=== PATIENT | male | born 1995 | race Caucasian/White ===

== ENCOUNTER 2023-08-24 07:12 | Emergency (ER) | payer OTHER, SELFPAY ==
--- NOTE | ~2023-08-24 | CT_ITS ---
EXAMINATION: CT ABDOMEN AND PELVIS WITH CONTRAST CLINICAL INFORMATION: Severe diffuse abdominal pain COMPARISON: None available. TECHNIQUE: Multidetector volumetric images were obtained from the superior aspect of the liver through the pubic symphysis following administration 85 mL of Omnipaque 350 intravenous contrast. Sagittal and coronal reformatted images were obtained on the technologist's workstation. Oral contrast: Yes This CT examination was performed using dose optimization techniques as appropriate, variously including the following: *Automated exposure control *Adjustment of mA and/or kV according to patient size (this includes techniques or standardized protocols for targeted exams where dose is matched to indication/reason for exam; i.e. extremities or head) *Use of iterative reconstruction technique DLP: 347 mGy-cm FINDINGS: LUNG BASES: The visualized lung bases are unremarkable. LIVER, GALLBLADDER, AND BILIARY TREE: The liver is normal in size, shape, and attenuation. No focal hepatic lesion or biliary ductal dilatation is present. The gallbladder is unremarkable with no evidence of radiopaque gallstones, gallbladder wall thickening, or obvious pericholecystic inflammatory changes. PANCREAS: Unremarkable. SPLEEN: Unremarkable. ADRENAL GLANDS: Unremarkable. KIDNEYS AND URETERS: The kidneys are normal in size, shape, and attenuation. No hydronephrosis, hydroureter, or calculi seen. No perinephric stranding. BLADDER: Unremarkable. GASTROINTESTINAL TRACT: Fluid-filled nondilated small and large bowel, question representing an ileus. There is also question of mild wall thickening of the proximal colon/mild colitis. Small and large bowel are otherwise normal. Appendix not seen. No ascites or free air. Normal stomach. ABDOMINAL WALL: No significant hernia is appreciated. LYMPH NODES: Normal. VASCULAR: Unremarkable. PELVIC VISCERA: Unremarkable. OSSEOUS STRUCTURES: Unremarkable. CT/CT abdomen pelvis w IV con IMPRESSION: Fluid-filled nondilated small and large bowel, question representing an ileus. Question mild wall thickening of the proximal colon/mild colitis. Fleischner guidelines were followed.
[2023-08-24 07:19] VITALS: BP 111/46; PULSE 72; RESP 16; TEMP 36.3; O2SAT 94; BMI 23.0
[2023-08-24 07:34] LABS: MANUAL DIFF FLAG NO
[2023-08-24 07:37] LABS: Basophils Percent Auto 0.1 % (0-2); Eosinophils Absolute Auto 0.1 X10*3/uL (0.0-0.4); Eosinophils Percent Auto 0.5 % (0-4); Hematocrit 45.6 % (42.0-52.0); Hemoglobin 15.7 g/dl (14.0-18.0); Imm Gran Abs Auto 0.07 X10*3/uL (0.00-0.03); Imm Gran Pct Auto 0.4 % (0.0-0.4); Lymphocytes Absolute Auto 0.4 X10*3/uL (1.2-4.9); Lymphocytes Percent Auto 2.5 % (20-40); Mean Corpuscular HGB Conc 34.4 g/dl (31.0-36.0); Mean Corpuscular Hemoglobin 29.3 pg (27.0-33.0); Mean Corpuscular Volume 85.2 fL (80.0-98.0); Mean Platelet Volume 10.1 fL (9.4-12.4); Monocytes Absolute Auto 0.6 X10*3/uL (0.1-1.2); Neutrophils Absolute Auto 14.7 x10*3/uL (2.0-8.3); Neutrophils Percent Auto 92.5 % (45-73); Platelet Count 230 X10*3/uL (160-400); Red Blood Count 5.35 X10*6/uL (4.60-5.80); Red Cell Distribution Width 12.9 % (11.0-16.0); SCAN SMEAR FLAG 1; White Blood Count 15.9 X10*3/uL (4.8-10.8)
[2023-08-24 07:48] LABS: Alanine Aminotransferase 18 U/L (0-40); Albumin Level 5.1 g/dL (3.5-5.0); Alkaline Phosphatase 77 U/L (39-117); Anion Gap 14 (12-20); Aspartate Amino Transferase 19 U/L (5-37); Blood Urea Nitrogen 18 mg/dL (9-16); Calcium 10.3 mg/dL (8.4-10.2); Carbon Dioxide 22 mmol/L (22-29); Chloride 108 mmol/L (96-108); Creatinine Clr Calc Pharmacy 130.9; Estimated Glomerular Filt Rate > 60; Glucose Random 144 mg/dL (60-115); Potassium 3.7 mmol/L (3.3-5.1); Sodium 140 mmol/L (135-145); Total Protein 8.2 g/dL (6.5-8.0)
--- NOTE | 2023-08-24 08:06 | ED_ITS ---
HPI - General Adult General Chief complaint: Abdominal Pain Stated complaint: vomiting diarrhea Time Seen by Provider: 08/24/23 07:46 Source: patient Mode of arrival: ambulatory Limitations: no limitations History of Present Illness HPI narrative: 28 year old male wo significant medical hx presents w/ nausea, vomiting, diarrhea and severe abd pain since last night at midnight. Pain started suddenly and it is severe. Reports he hasnt been able to keep anything down. Daughter started w/ similar sx shortly after. Patient doesnt drink alcohol or use drugs. Denies cp, sob, zhou, vision changes, dizziness, weakness, fevers, chills. Related Data Previous Rx's ?Medication ?Instructions ?Recorded ondansetron 4 mg disintegrating 4 mg PO Q6H PRN nausea and 08/24/23 tablet vomiting #14 tabs Allergies Allergy/AdvReac Type Severity Reaction Status Date / Time No Known Allergies Allergy Verified 08/24/23 07:20 [No Known Allergies*] Review of Systems 2 Review of Systems: Yes all other systems are reviewed and are negative PMFSH Past Medical History Attestation statement: The following information was validated with the patient. Source: old records reviewed and nursing notes reviewed Social History Social History Smoked in Last 30 Days: No Use of substances other than those prescribed or required for medical reasons: Yes Substance Use Type: Marijuana Advance Directives: No Advance Directives Information Provided: No Physical Exam ED Vital Signs: Vital Signs - 24 hr 08/24/23 07:19 Temperature 97.3 F Pulse Rate 72 Respiratory Rate 16 Blood Pressure 111/46 L Pulse Oximetry 94 Oxygen Delivery Method Room Air BMI result Body Mass Index 23.0 vss Appearance: Alert.? Oriented X3.? No acute distress.? Head: Normocephalic, atraumatic, no step-offs or deformities Eyes: Pupils equal, round and reactive to light.? CVS: Normal heart rate and rhythm.? Pulses normal.? Respiratory: No respiratory distress.? Breath sounds normal.? Abdomen: Soft and diffuse significant tenderness..? Skin: Skin warm and dry.? Normal skin color.? Normal skin turgor.? Extremities: No lower extremity edema.? No calf ttp. 5/5 strength to bilateral upper and lower extremities Neuro: Oriented X 3.? No motor deficit.? No sensory deficit. CN 2-12 intact Course Reevaluation(s) Reevaluation #1: CBC with leukocytosis with left shift likely reactive secondary to nausea, vomiting. Chemistry no acute findings requiring intervention. Glucose elevated 144 no elevated anion gap or shift unlikely DKA. Flu, COVID, RSV negative. CT abdomen and pelvis with fluid-filled nondilated small and large bowel question representing ileus likely secondary to viral illness. Question mild thickening of the proximal colon/mild colitis. Will give patient Toradol for pain and he was given Zofran for nausea and vomiting. Time: 09:28 Reevaluation #2: Patient feeling better in terms of nausea and vomiting. Will discharge him home with Zofran. Educated patient on diagnosis and treatment plan, answered all question, patient verbalizes understanding. At this time patient will be discharged home, advised to return with new or worsening symptoms. Educated on worrisome signs and symptoms and when to return. At this time I feel comfortable discharge home. Time: 09:28 Medications Administered Discontinued Medications Generic Name Dose Route Start Last Admin Trade Name Ravindra PRN Reason Stop Dose Admin Sodium Chloride 1,000 mls @ 999 mls/hr 08/24/23 08:15 08/24/23 08:21 Ns IV 08/24/23 09:15 999 mls/hr .Q1H1M MALVIN Administration Iohexol 100 ml 08/24/23 08:07 08/24/23 08:08 Iohexol 350 Mg/Ml 100 Ml Infus..Btl IV 08/24/23 08:08 85 ml ONCE ONE Administration Ondansetron HCl 4 mg 08/24/23 08:10 08/24/23 08:20 Ondansetron Hcl 4 Mg/2 Ml Vial IVPUSH 08/24/23 08:11 4 mg ONCE ONE Administration Medical Decision Making Medical Decision Making [facility] Narrative: 0808 28 year old male presents w/ n/v/d since midnight today PE diffuse significant tenderness Hx and pe concerning for viral illness vs gastroenteritis vs flu vs covid vs norovirus. Unlikely acute abdomen, obstruction, pancreatitis, cholecystitis, appendicitis, diverticulitis, kidney stone, dissection Plan- labs, imaging, urine Differential Diagnosis Differential Diagnoses: The differential diagnosis associated with the presentation includes Hx and pe concerning for viral illness vs gastroenteritis vs flu vs covid vs norovirus. Unlikely acute abdomen, obstruction, pancreatitis, cholecystitis, appendicitis, diverticulitis, kidney stone, dissection Admission/Observation Consideration of admission/observation: Escalation of care including admission/observation considered Lab Data MDM Lab Attestation statement: I reviewed the patient's lab results. 08/24/23 07:30 08/24/23 07:30 Labs: Lab Results 08/24/23 Range/Units 07:30 WBC 15.9 H (4.8-10.8) X10*3/uL RBC 5.35 (4.60-5.80) X10*6/uL Hgb 15.7 (14.0-18.0) g/dl Hct 45.6 (42.0-52.0) % MCV 85.2 (80.0-98.0) fL MCH 29.3 (27.0-33.0) pg MCHC 34.4 (31.0-36.0) g/dl RDW 12.9 (11.0-16.0) % Plt Count 230 (160-400) X10*3/uL MPV 10.1 (9.4-12.4) fL Immature Gran % (Auto) 0.4 (0.0-0.4) % Neut % (Auto) 92.5 H (45-73) % Lymph % (Auto) 2.5 L (20-40) % Garza % (Auto) 4.0 (2-11) % Eos % (Auto) 0.5 (0-4) % Baso % (Auto) 0.1 (0-2) % Lymph # (Auto) 0.4 L (1.2-4.9) X10*3/uL Garza # (Auto) 0.6 (0.1-1.2) X10*3/uL Eos # (Auto) 0.1 (0.0-0.4) X10*3/uL Baso # (Auto) 0.0 (0.0-0.2) X10*3/uL Abs Immat Gran (auto) 0.07 H (0.00-0.03) X10*3/uL Absolute Neuts (auto) 14.7 H (2.0-8.3) x10*3/uL Absolute Nucleated RBC 0.000 (0.0-0.012) X10*3/uL Nucleated RBC % (auto) 0.0 (0.0-0.2) /100WBC Sodium 140 (135-145) mmol/L Potassium 3.7 (3.3-5.1) mmol/L Chloride 108 (96-108) mmol/L Carbon Dioxide 22 (22-29) mmol/L Anion Gap 14 (12-20) BUN 18 H (9-16) mg/dL Creatinine 0.87 (0.5-1.4) mg/dL Estim Creat Clear Calc 130.9 Estimated GFR > 60 Random Glucose 144 H (60-115) mg/dL Calcium 10.3 H (8.4-10.2) mg/dL Total Bilirubin 1.0 (0.0-1.0) mg/dL AST 19 (5-37) U/L ALT 18 (0-40) U/L Alkaline Phosphatase 77 (39-117) U/L Total Protein 8.2 H (6.5-8.0) g/dL Albumin 5.1 H (3.5-5.0) g/dL Influenza Type A (PCR) NEGATIVE (Negative) Influenza Type B (PCR) NEGATIVE (Negative) RSV RNA Qual (PCR) NEGATIVE (Negative) SARS-CoV-2 RNA (RT-PCR) NEGATIVE (Negative) Independent Interpretation I performed an independent interpretation of an: CT Scan (IMPRESSION: Fluid- filled nondilated small and large bowel, question representing an ileus. Question mild wall thickening of the proximal colon/mild colitis.) Radiology Impression Discussion of test interpretation with radiology: I have reviewed the radiologist's reading. Prescription Management I considered prescription management with: Other (zofran ) Critical Care Time Critical Care Time Critical Care Time: No Discharge Plan Discharge Clinical Impression: Abdominal pain, Viral illness, Ileus Patient Disposition: Home, Self-Care Instructions: Abdominal Pain (ED), Ileus (ED) Additional Instructions: Take your medications as prescribed. If you were prescribed antibiotics today, it is important that you take your medication to their entirety, do not skip any doses, do not finish them early. Follow-up with your primary care provider this week. Return to the emergency department with new or worsening symptoms. Such as fevers, chills, chest pain, shortness of breath, nausea, vomiting, dizziness, headache, vision changes, lethargy In case of emergency call 911 CT/CT abdomen pelvis w IV con IMPRESSION: Fluid-filled nondilated small and large bowel, question representing an ileus. Question mild wall thickening of the proximal colon/mild colitis. Fleischner guidelines were followed. Prescriptions: New ondansetron 4 mg tablet,disintegrating 4 mg PO Q6H PRN (Reason: nausea and vomiting) Qty: 14 0RF Referrals: Physician,Unknown J [Primary Care Provider] - 2 days Stand Alone Forms: Work/School Release Print Language: Icelandic
[2023-08-24] MEDS: iohexoL 350 MG/ML 100 ML INFUS..BTL IV (08:08)
[2023-08-24 08:18] LABS: Influenza A PCR NEGATIVE (Negative); Influenza B PCR NEGATIVE (Negative); Resp Syncy Virus RNA Qual PCR NEGATIVE (Negative); SARS COV2 PCR INHOUSE NEGATIVE (Negative)
[2023-08-24] MEDS: ondansetron HCL 4 MG/2 ML VIAL IVPUSH (08:20)
[2023-08-24] MEDS: 0.9 % Sodium Chloride 1,000 ML 999 ML IV (08:21)
--- NOTE | 2023-08-24 08:23 | PC.NURSE ---
pt ambulatory w/o assistance on ED arrival. a&ox4. vss and up to date. labs drawn in triage. pt c/o generalized abd pain/n/v/d that started around 0200 this morning. pt states daughter has been sick at home. 20gIV placed in the right AC. medication/IVF administered per provider order. pt returned from CT. results pending at this time. no sob/wob noted. respirations even and unlabored. plan of care ongoing. call colon placed within reach.
--- NOTE | 2023-08-24 09:22 | PC.NURSE ---
pt verbalizing relief post IVF/medication administration. CT results available - pt waiting to discuss w/ ED provider. plan of care ongoing. call colon placed within reach.
[2023-08-24] MEDS: Ketorolac Tromethamine 15 MG/ML VIAL 30 MG IVPUSH (09:42)
[2023-08-24 09:45] VITALS: BP 108/51; PULSE 72; RESP 16; TEMP 36.4; O2SAT 100
== END 2023-08-24 09:50 | disposition home or self-care (01) ==
PROVIDERS: Emergency Provider Emergency Medicine Emergency Medical Services
DX: R10.9 Unspecified abdominal pain (principal); B34.9 Viral infection, unspecified; K56.7 Ileus, unspecified; R11.2 Nausea with vomiting, unspecified; Z03.818 Encounter for observation for suspected exposure to other biological agents ruled out; Z79.899 Other long term (current) drug therapy
CPT/HCPCS: 0241U; 74177; 80053; 85025; 96361; 96374; 96375; 99284; 99285; J1885; J2405; Q9967